=== PATIENT | male | born 1995 | race American Indian/Alaskan Native ===

== ENCOUNTER 2017-10-11 12:39 | Emergency (ER) | payer OTHER, BC ==
[2017-10-11 13:00] VITALS: BMI 26.2
[2017-10-11 13:01] VITALS: RESP 18; O2SAT 98
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
[2017-10-11 15:43] VITALS: BP 119/69; PULSE 74; TEMP 98.1
== END 2017-10-11 16:00 | disposition home or self-care (01) ==
LOC: ED 12:39 → MERGE 12:39 → ED 16:00
DX: M25.512 Pain in left shoulder (principal)